=== PATIENT | female | born 1950 | race Caucasian/White ===

== ENCOUNTER 2017-03-23 12:01 | Inpatient (IN) | payer MEDICARE, OTHER ==
[~2017-03-23] VITALS: Ht 160 cm; Wt 122.0 kg
[~2017-03-23 12:01] MED LIST: IOHEXOL 300 MG/ML 50 ML BTL (for RAD DIAG) ONE; ONDANSETRON HCL 4 MG/2 ML VIAL IV PUSH ONE; PROPOFOL 200 MG/20 ML AMP IV ONE
[2017-03-23 12:03] VITALS: BP 143/85; PULSE 115; RESP 18; TEMP 98.7; O2SAT 95
--- NOTE | 2017-03-23 12:10 | PD ---
Physical Exam Date Seen by Provider: Mar 23, 2017 Time Seen by Provider: 12:09 Narrative 66 yo female that present to the ED for lower mid back pain. Doesnt radiate. Unsure if is kidney stone, but has had them before. Some abdominal pain too. No urinary or BM issues. Going on since yesterday. Some nausea but no vomit. Chills. pain is 8/10. Vitals are stable in triage. Awaiting bed placement. Data Data Last Documented VS Vital Signs Date Time Temp Pulse Resp B/P Pulse Ox O2 Delivery O2 Flow Rate FiO2 03/23/17 12:03 98.7 115 18 143/85 95 MDM Medical Record Reviewed: Yes Supervised Visit with EMILIANO: No Bird Tyler Mar 23, 2017 12:10
[2017-03-23] MEDS ORDERED: LEVO75TA3 PO (12:28)
[2017-03-23] MEDS ORDERED: ACTO30TA10 PO ×2 (12:28→13:27)
[2017-03-23] MEDS ORDERED: WELLTAB39 PO (12:28)
[2017-03-23] MEDS ORDERED: TOPA100T11 PO (12:28)
[2017-03-23] MEDS ORDERED: VIIB40TA PO (12:28)
[2017-03-23] MEDS ORDERED: SODIUM CHLOR 0.9% 1000 ML INJ 1,000 ML IV SCH (12:32)
[2017-03-23] MEDS ORDERED: HYDROmorphone HCL PF 1 MG/ML VIAL IVS ONE (12:45)
[2017-03-23] MEDS ORDERED: SODIUM CHLORIDE 0.9% FLUSH 10 ML FLUSH IV FLUSH PRN ×2 (12:45→14:45)
[2017-03-23] MEDS ORDERED: ONDANSETRON HCL 4 MG/2 ML VIAL IVP ONE (12:45)
--- NOTE | 2017-03-23 12:56 | PD ---
HPI Chief Complaint: GI Complaint Time Seen by Provider: 12:18 Travel History International Travel<30 days: No Contact w/Intl Traveler<30days: No Traveled to known affect area: No History of Present Illness HPI 66-year-old female arrives with complaint of left flank pain for about 20 hours or so. It started yesterday while she was in a pool. The onset was sudden. She began shivering afterwards and laid under blankets for several hours. She felt gas pains and believed she may have been constipated. Tums did not help. She applied a patch to the L flank hoping for pain relief which helped marginally. A warm compress over the suprapubic abdomen was minimally helpful. No fever, n/v. Urination has been normal with no hematuria observed. Pt has hx renal stones however believes pain is different. PFSH Past Medical History Arthritis: Yes Depression: Yes Diabetes: Yes Patient Takes Glucophage: No Diminished Hearing: No Endocrine: Yes (hypothyroidism) Influenza Vaccination: Yes ?: Not Past Surgical History Gynecologic Surgery: Yes Hysterectomy: Yes Social History Alcohol Use: Yes (VERY RARELY) Tobacco Use: No Substance Use: No Allergies-Medications (Allergen,Severity, Reaction): Coded Allergies: No Known Allergies (Unverified , 03/23/17) Reported Meds & Prescriptions Reported Meds & Active Scripts Active Reported Vitamin D-1000 (Cholecalciferol) 1,000 Unit Tab 50,000 Units PO WEEKLY Cyanocobalamin Inj (Cyanocobalamin) 1,000 Mcg/Ml Inj 1,000 Mcg IM Q30D Temazepam 30 Mg Cap 30 Mg PO HS PRN Atorvastatin (Atorvastatin Calcium) 10 Mg Tab 10 Mg PO HS Fluticasone Nasal [place] 50 Mcg/Act Naspr 50 Mcg EACH NARE BID 50 mcg/spray Actos (Pioglitazone HCl) 30 Mg Tab 30 Mg PO DAILY Actos (Pioglitazone HCl) 30 Mg Tab 30 Mg PO DAILY Topamax (Topiramate) 100 Mg Tab 100 Mg PO BID Viibryd (Vilazodone) 40 Mg Tab 40 Mg PO DAILY Wellbutrin Xl 24 HR (Bupropion HCl) 300 Mg Tab 300 Mg PO DAILY Levothyroxine (Levothyroxine Sodium) 75 Mcg Tab 75 Mcg PO DAILY Review of Systems Except as stated in HPI: all other systems reviewed are Neg Physical Exam Narrative GENERAL: 66 yo F, WNWD, NAD SKIN: Warm and dry. HEAD: Atraumatic. Normocephalic. EYES: Pupils equal and round. No scleral icterus. No injection or drainage. ENT: No nasal bleeding or discharge. Mucous membranes pink and moist. NECK: Trachea midline. No JVD. CARDIOVASCULAR: Regular rate and rhythm. RESPIRATORY: No accessory muscle use. Clear to auscultation. Breath sounds equal bilaterally. GASTROINTESTINAL: Soft. No significant TTP either flank. MUSCULOSKELETAL: Extremities without clubbing, cyanosis, or edema. No obvious deformities. NEUROLOGICAL: Awake and alert. No obvious cranial nerve deficits. Motor grossly within normal limits. Five out of 5 muscle strength in the arms and legs. Normal speech. PSYCHIATRIC: Appropriate mood and affect; insight and judgment normal. Data Data Last Documented VS Vital Signs Date Time Temp Pulse Resp B/P Pulse Ox O2 Delivery O2 Flow Rate FiO2 03/23/17 12:58 99.2 91 20 133/61 94 Room Air VS removed Orders Complete Blood Count With Diff (03/23/17 12:32) Comprehensive Metabolic Panel (03/23/17 12:32) Lipase (03/23/17 12:32) Lactic Acid (03/23/17 12:32) Ct Abd/Pel W/O Iv Contrast (03/23/17 12:32) Iv Access Insert/Monitor (03/23/17 12:32) Ecg Monitoring (03/23/17 12:32) Oximetry (03/23/17 12:32) Ondansetron Inj (Zofran Inj) (03/23/17 12:45) Sodium Chlor 0.9% 1000 Ml Inj (Ns 1000 M (03/23/17 12:32) Sodium Chloride 0.9% Flush (Ns Flush) (03/23/17 12:45) Hydromorphone Pf Inj (Dilaudid Pf Inj) (03/23/17 12:45) Urinalysis - C+S If Indicated (03/23/17 13:23) Gentamicin Inj (Gentamicin Inj) (03/23/17 13:49) Vancomycin Inj (Vancomycin Inj) (03/23/17 13:49) Diet Npo (03/23/17 Lunch) Vancomycin Inj (Vancomycin Inj) (03/23/17 15:00) Piperacil-Tazo 2.25 Gm Premix (Zosyn 2.2 (03/23/17 15:00) Admit Order (Ed Use Only) (03/23/17 14:35) Labs Laboratory Tests Test 03/23/17 12:30 White Blood Count 15.6 TH/MM3 Red Blood Count 3.88 MIL/MM3 Hemoglobin 11.9 GM/DL Hematocrit 35.7 % Mean Corpuscular Volume 92.1 FL Mean Corpuscular Hemoglobin 30.8 PG Mean Corpuscular Hemoglobin 33.4 % Concent Red Cell Distribution Width 13.8 % Platelet Count 162 TH/MM3 Mean Platelet Volume 9.4 FL Neutrophils (%) (Auto) 93.0 % Lymphocytes (%) (Auto) 2.8 % Monocytes (%) (Auto) 4.0 % Eosinophils (%) (Auto) 0.0 % Basophils (%) (Auto) 0.2 % Neutrophils # (Auto) 14.5 TH/MM3 Lymphocytes # (Auto) 0.4 TH/MM3 Monocytes # (Auto) 0.6 TH/MM3 Eosinophils # (Auto) 0.0 TH/MM3 Basophils # (Auto) 0.0 TH/MM3 CBC Comment DIFF FINAL Differential Comment Sodium Level 139 MEQ/L Potassium Level 3.6 MEQ/L Chloride Level 109 MEQ/L Carbon Dioxide Level 21.6 MEQ/L Anion Gap 8 MEQ/L Blood Urea Nitrogen 24 MG/DL Creatinine 1.47 MG/DL Estimat Glomerular Filtration 36 ML/MIN Rate Random Glucose 105 MG/DL Lactic Acid Level 1.1 mmol/L Calcium Level 9.2 MG/DL Total Bilirubin 0.7 MG/DL Aspartate Amino Transf 17 U/L (AST/SGOT) Alanine Aminotransferase 19 U/L (ALT/SGPT) Alkaline Phosphatase 113 U/L Total Protein 7.2 GM/DL Albumin 3.5 GM/DL Lipase 43 U/L [facility] Medical Decision Making Medical Screen Exam Complete: Yes Emergency Medical Condition: Yes Medical Record Reviewed: Yes Differential Diagnosis Gastritis, pancreatitis, appendicitis, acute cholecystitis, ascending cholangitis, AAA, perforated viscous, mesenteric ischemia, hepatitis, cystitis, hydronephrosis/hydroureter/nephroureter calculus, mesenteric adenitis, biliary colic Narrative Course CBC & BMP Diagram 03/23/17 12:30 Neutrophils 93% LFTs normal LA 1.1 Lipase 43 Last 24 hours Impressions Abdomen/Pelvis CT 03/23/17 1232 Signed Impressions: Service Date/Time: Thursday, March 23, 2017 13:08 - CONCLUSION: 1. Acute obstructive uropathy of the left proximal ureter secondary to a 15 x 6 mm calcified calculus resulting in moderate pelvicaliectasis on the left. There is also air throughout the pelvicalyceal system suggesting gas-forming organism unless instrumentation has been attempted. Clinical correlation is recommended. Perinephric streakiness is noted on the left. 2. Uncomplicated colonic diverticulosis. 3. Hepatomegaly. 4. Scattered atelectasis within the visualized lung bases. 5. Cardiomegaly and tiny pericardial effusion. 6. Degenerative changes and scoliosis of the thoracolumbar spine are noted. Jerrod Shirley MD Broad-spectrum antibiotics started, gentamicin and vancomycin and Zosyn. Case discussed with Dr. Palma who will take the patient to the OR for stent placement. Case discussed with Dr. Musa for the hospitalist service. Patient has remained comfortable after receiving 0.5 mg hydromorphone 2 hours prior to time of admission. Patient is agreeable with plan that includes admission with plan for operative intervention. Diagnosis Primary Impression: Ureteric calculus Additional Impression: Urinary tract obstruction due to kidney stone Admitting Information Admitting Physician Requests: Admit Jose Parada MD Mar 23, 2017 12:56
[2017-03-23 12:58] VITALS: BP 133/61; PULSE 91; RESP 20; TEMP 99.2; O2SAT 94
[2017-03-23 13:10] LABS: AUTOMATED NEUTROPHIL # 14.5 TH/MM3 (1.8-7.7); BASOPHIL % 0.2 % (0.0-2.0); HEMATOCRIT 35.7 % (35.0-46.0); HEMO FLAGS DIFF FINAL; LYMPH % 2.8 % (9.0-44.0); LYMPHOCYTE # 0.4 TH/MM3 (1.0-4.8); MEAN CELL VOLUME 92.1 FL (80.0-100.0); MEAN CORPUSCULAR HEMOGLOBIN 30.8 PG (27.0-34.0); MEAN CORPUSCULAR HGB CONC 33.4 % (32.0-36.0); PLATELET COUNT 162 TH/MM3 (150-450); RED BLOOD COUNT 3.88 MIL/MM3 (4.00-5.30); RED CELL DISTRIBUTION WIDTH 13.8 % (11.6-17.2); WHITE BLOOD COUNT 15.6 TH/MM3 (4.0-11.0)
[2017-03-23] MEDS ORDERED: CYAN1000P IM (13:27)
[2017-03-23] MEDS ORDERED: FLUT50SP EACH NARE (13:27)
[2017-03-23] MEDS ORDERED: TEMA30CA PO (13:27)
[2017-03-23] MEDS ORDERED: ATOR10TA15 PO (13:27)
[2017-03-23] MEDS ORDERED: VITA1000 PO (13:27)
[2017-03-23 13:35] LABS: ANION GAP 8 MEQ/L (5-15); AST (GOT) 17 U/L (15-37); BICARBONATE 21.6 MEQ/L (21.0-32.0); BLOOD UREA NITROGEN 24 MG/DL (7-18); CHLORIDE 109 MEQ/L (98-107); GLOMERULAR FILTRATION RATE 36 ML/MIN (>89); POTASSIUM 3.6 MEQ/L (3.5-5.1); SODIUM (NA) 139 MEQ/L (136-145)
[2017-03-23 13:36] LABS: ALT (GPT) 19 U/L (10-53)
[2017-03-23 13:38] LABS: ALKALINE PHOSPHATASE 113 U/L (45-117); TOTAL BILIRUBIN ADULT 0.7 MG/DL (0.2-1.0)
--- NOTE | 2017-03-23 13:40 | RADRPT ---
EXAM DATE/TIME: 03/23/2017 13:08 [place] COMPARISON: No previous studies available for comparison. INDICATIONS : Left flank pain, nausea. ORAL CONTRAST: No oral contrast ingested. RADIATION DOSE: 18.82 CTDIvol (mGy) MEDICAL HISTORY : Diabetes mellitus type 2. Hypothyroidism. Renal calculi. SURGICAL HISTORY : Hysterectomy. ENCOUNTER: Initial ACUITY: 1 day PAIN SCALE: 8/10 LOCATION: Left flank TECHNIQUE: Volumetric scanning of the abdomen and pelvis was performed. Using automated exposure control and ad justment of the mA and/or kV according to patient size, radiation dose was kept as low as reasonably achievable to obtain optimal diagnostic quality images. DICOM format image data is available electro nically for review and comparison. FINDINGS: There is evidence of a large calcified obstructing left proximal ureteral calculus measuring 15 x 6 m m. Moderate pelvicaliectasis is noted. There is also extensive air within the collecting system sug gesting gas-forming organism. Perinephric streakiness is noted. Uncomplicated colonic diverticulosis is noted. There is no acute diverticulitis. Evaluation of the solid organs of the abdomen is limited by the lack of intravenous contrast. There is mild hepatomegaly. The gallbladder is unremarkable. The heart is enlarged. Small pericardial ef fusion is noted. Degenerative changes and scoliosis of the thoracolumbar spine are noted. Scattered atelectasis is noted in the lung bases bilaterally. CONCLUSION: 1. Acute obstructive uropathy of the left proximal ureter secondary to a 15 x 6 mm calcified calculu s resulting in moderate pelvicaliectasis on the left. There is also air throughout the pelvicalyceal system suggesting gas-forming organism unless instrumentation has been attempted. Clinical correlat ion is recommended. Perinephric streakiness is noted on the left. 2. Uncomplicated colonic diverticulosis. 3. Hepatomegaly. 4. Scattered atelectasis within the visualized lung bases. 5. Cardiomegaly and tiny pericardial effusion. 6. Degenerative changes and scoliosis of the thoracolumbar spine are noted. Jerrod Shirley MD on March 23, 2017 at 13:18 Board Certified Radiologist. This report was verified electronically.
[2017-03-23] MEDS ORDERED: GENTAMICIN INJ 100 MG in SODIUM CHLORIDE 0.9% INJ 100 ML IV STA (13:49)
[2017-03-23] MEDS ORDERED: VANCOMYCIN INJ 1,000 MG in SODIUM CHLOR 0.9% 250 ML INJ 250 ML IV STA (13:49)
[2017-03-23] MEDS ORDERED: NALOXONE HCL 0.4 MG/ML AMP IV PRN (14:45)
[2017-03-23] MEDS ORDERED: BISACODYL 10 MG SUPP RECTAL PRN (14:45)
[2017-03-23] MEDS ORDERED: SENNOSIDES 8.6 MG TAB PO PRN (14:45)
[2017-03-23] MEDS ORDERED: MAGNESIUM HYDROXIDE SUSP 30 ML CUP PO PRN (14:45)
[2017-03-23] MEDS ORDERED: LACTULOSE SYRUP 20 GM/30 ML CUP PO PRN (14:45)
--- NOTE | 2017-03-23 14:56 | PD.CONS ---
HPI Service Urology Consult Requested By Reason for Consult Obstructing left ureteral calculus Primary Care Physician Ricky Perez M.D. Diagnosis: History of Present Illness 66-year-old female with history nephrolithiasis who presented to the emergency room with complaints of left flank pain that began yesterday. Patient reports that during the night she was shivering and required multiple blankets. Upon arrival to the emergency room, a CT scan of the abdomen and pelvis was performed that demonstrated a 1.5 cm obstructing left proximal ureteral calculus with hydronephrosis. There was also air noted to be within the collecting system as well as perinephric stranding. An emergent urology consult was placed regarding further management. Upon further questioning the patient reports that she had one stone episode several years ago whereby she passed a small stones spontaneously. She denies a history of any other significant past urologic history. Review of Systems Constitutional: COMPLAINS OF: Chills, DENIES: Fever Cardiovascular: DENIES: Chest pain Gastrointestinal: COMPLAINS OF: Abdominal pain (left side) Genitourinary: DENIES: Hematuria Musculoskeletal: COMPLAINS OF: Back pain (left flank) Except as stated in HPI: all other systems reviewed are Neg Past Family Social History Past Medical History Diabetes mellitus Nephrolithiasis Arthritis Depression Hypothyroidism Past Surgical History Status post hysterectomy Reported Medications Refer to EMR Allergies: Coded Allergies: No Known Allergies (Unverified , 03/23/17) Active Ordered Medications Refer to EMR Family History Reviewed and noncontributory Social History Denies tobacco or history intravenous drug abuse Occasional alcohol use Physical Exam Vital Signs Date Time Temp Pulse Resp B/P Pulse Ox O2 Delivery O2 Flow Rate FiO2 03/23/17 12:58 99.2 91 20 133/61 94 Room Air 03/23/17 12:03 98.7 115 18 143/85 95 Physical Exam GENERAL: This is a well-nourished, well-developed patient, in no apparent distress. SKIN: No rashes, ecchymoses or lesions. Cool and dry. HEAD: Atraumatic. Normocephalic. No temporal or scalp tenderness. EYES: Pupils equal round and reactive. Extraocular motions intact. No scleral icterus. No injection or drainage. ENT: Nose without bleeding, purulent drainage or septal hematoma. Throat without erythema, tonsillar hypertrophy or exudate. Uvula midline. Airway patent. NECK: Trachea midline. No JVD or lymphadenopathy. Supple, nontender, no meningeal signs. CARDIOVASCULAR: Regular rate and rhythm without murmurs, gallops, or rubs. RESPIRATORY: Clear to auscultation. Breath sounds equal bilaterally. No wheezes , rales, or rhonchi. GASTROINTESTINAL: Abdomen soft, non-tender, nondistended. No hepato-splenomegaly , or palpable masses. No guarding. GENITOURINARY: No CVA tenderness MUSCULOSKELETAL: Extremities without clubbing, cyanosis, or edema. No joint tenderness, effusion, or edema noted. No calf tenderness. Negative Homans sign bilaterally. NEUROLOGICAL: Awake and alert. Cranial nerves II through XII intact. Motor and sensory grossly within normal limits. Five out of 5 muscle strength in all muscle groups. Normal speech. Lab results reviewed: Yes Laboratory Tests Test 03/23/17 12:30 White Blood Count 15.6 Red Blood Count 3.88 Hemoglobin 11.9 Hematocrit 35.7 Mean Corpuscular Volume 92.1 Mean Corpuscular Hemoglobin 30.8 Mean Corpuscular Hemoglobin 33.4 Concent Red Cell Distribution Width 13.8 Platelet Count 162 Mean Platelet Volume 9.4 Neutrophils (%) (Auto) 93.0 Lymphocytes (%) (Auto) 2.8 Monocytes (%) (Auto) 4.0 Eosinophils (%) (Auto) 0.0 Basophils (%) (Auto) 0.2 Neutrophils # (Auto) 14.5 Lymphocytes # (Auto) 0.4 Monocytes # (Auto) 0.6 Eosinophils # (Auto) 0.0 Basophils # (Auto) 0.0 CBC Comment DIFF FINAL Differential Comment Sodium Level 139 Potassium Level 3.6 Chloride Level 109 Carbon Dioxide Level 21.6 Anion Gap 8 Blood Urea Nitrogen 24 Creatinine 1.47 Estimat Glomerular Filtration 36 Rate Random Glucose 105 Lactic Acid Level 1.1 Calcium Level 9.2 Total Bilirubin 0.7 Aspartate Amino Transf 17 (AST/SGOT) Alanine Aminotransferase 19 (ALT/SGPT) Alkaline Phosphatase 113 Total Protein 7.2 Albumin 3.5 Lipase 43 Result Diagram: 03/23/17 1230 03/23/17 1230 Personally reviewed images: Yes Imaging Last Impressions Abdomen/Pelvis CT 03/23/17 1232 Signed Impressions: Service Date/Time: Thursday, March 23, 2017 13:08 - CONCLUSION: 1. Acute obstructive uropathy of the left proximal ureter secondary to a 15 x 6 mm calcified calculus resulting in moderate pelvicaliectasis on the left. There is also air throughout the pelvicalyceal system suggesting gas-forming organism unless instrumentation has been attempted. Clinical correlation is recommended. Perinephric streakiness is noted on the left. 2. Uncomplicated colonic diverticulosis. 3. Hepatomegaly. 4. Scattered atelectasis within the visualized lung bases. 5. Cardiomegaly and tiny pericardial effusion. 6. Degenerative changes and scoliosis of the thoracolumbar spine are noted. Jerrod Shirley MD Assessment and Plan Assessment and Plan Urologic impression: #1 left sided emphysematous pyelonephritis #2 obstructing left proximal ureteral calculus Plan: #1 keep patient nothing by mouth #2 agree with intravenous antibiotic therapy #3 will bring the patient to the operating room suite today for cystoscopy, left retrograde pyelogram and left ureteral stent placement Keanu Castillo MD Mar 23, 2017 14:56
[2017-03-23] MEDS ORDERED: PIPERACIL-TAZO 2.25 GM PREMIX 50 ML IV ONE (15:00)
[2017-03-23] MEDS ORDERED: VANCOMYCIN INJ 1,750 MG in SODIUM CHLORID 0.9% 500 ML INJ 500 ML IV ONE (15:00)
[2017-03-23] MEDS: SODIUM CHLOR 0.9% 1000 ML INJ 1,000 ML IV SCH ×2 (15:05→20:12)
[2017-03-23] MEDS ORDERED: GLUCAGON 1 MG/ML VIAL OTHER PRN (15:15)
[2017-03-23] MEDS ORDERED: DEXTROSE 50% IN WATER 50 ML VIAL(D50) IV PRN (15:15)
--- NOTE | 2017-03-23 15:29 | HHI.HP ---
[facility]ician Ricky Perez M.D. Admission Diagnosis L Ureter Stone w Obstruction Diagnoses: Chief Complaint: Abdominal/flank pain Travel History International Travel<30 Days: No Contact w/Intl Traveler <30 Da: No Traveled to Known Affected Are: No History of Present Illness Written by Gus Chaudhary, acting as scribe for Dr. Musa on 03/23/17 at 15:29. 66-year-old female with a past medical history of depression, DM, HLD, OA, hypothyroidism, and history of kidney stones in the past who presented for left flank pain. The patient states that yesterday afternoon she was swelling and developed dull back pain. The pain has been constant since that time. She locates the pain in her left back and it radiates to her lower abdomen. She did have chills last night. She's been reporting decreased appetite for the past day. She's been generally uncomfortable secondary to the pain overnight. She denies any nausea, vomiting, chest pain, shortness breath, dysuria, headache , constipation, cough, cold symptoms. She did have a history of a small kidney stone back in 2011 which he passed spontaneously. She did have a recent intentional 50 pound weight loss. She was seen by urology who is planning on operative intervention today. Review of Systems Except as stated in HPI: all other systems reviewed are Neg Past Family Social History Past Medical History Depression Hyperlipidemia Diabetes mellitus Hypothyroidism Osteoarthritis History of kidney stones Past Surgical History Hysterectomy Lumpectomy Reported Medications Vitamin D-1000 (Cholecalciferol) 1,000 Unit Tab 50,000 Units PO WEEKLY Cyanocobalamin Inj (Cyanocobalamin) 1,000 Mcg/Ml Inj 1,000 Mcg IM Q30D Temazepam 30 Mg Cap 30 Mg PO HS PRN Atorvastatin (Atorvastatin Calcium) 10 Mg Tab 10 Mg PO HS Fluticasone Nasal [place] 50 Mcg/Act Naspr 50 Mcg EACH NARE BID 50 mcg/spray Actos (Pioglitazone HCl) 30 Mg Tab 30 Mg PO DAILY Actos (Pioglitazone HCl) 30 Mg Tab 30 Mg PO DAILY Topamax (Topiramate) 100 Mg Tab 100 Mg PO BID Viibryd (Vilazodone) 40 Mg Tab 40 Mg PO DAILY Wellbutrin Xl 24 HR (Bupropion HCl) 300 Mg Tab 300 Mg PO DAILY Levothyroxine (Levothyroxine Sodium) 75 Mcg Tab 75 Mcg PO DAILY Allergies: Coded Allergies: No Known Allergies (Unverified , 03/23/17) Active Ordered Medications Current Medications Medications (Trade) Dose Ordered Sig/Judith Route Start Time Stop Time Status Last Admin Sodium Chloride 2 ml 2 ml UNSCH PRN IV FLUSH 03/23/17 12:45 Vancomycin HCl 1750 mg/Sodium Chloride 517.5 ml @ 258.75 mls/ hr ONCE ONCE IV 03/23/17 15:00 03/23/17 16:59 (NS 1000 ml Inj) 1,000 ml @ 100 mls/hr Q10H IV 03/23/17 14:37 03/23/17 15:05 (NS Flush) 2 ml UNSCH PRN IV FLUSH 03/23/17 14:45 (NS Flush) 2 ml BID IV FLUSH 03/23/17 21:00 (Zofran Inj) 4 mg Q6H PRN IVP 03/23/17 14:45 (Narcan Inj) 0.4 mg UNSCH PRN IV 03/23/17 14:45 (Olivia-Colace) 1 tab BID PO 03/23/17 21:00 (Milk Of Magnesia Liq) 30 ml Q12H PRN PO 03/23/17 14:45 (Senokot) 17.2 mg Q12H PRN PO 03/23/17 14:45 (Dulcolax Supp) 10 mg DAILY PRN RECTAL 03/23/17 14:45 Lactulose 30 ml 30 ml DAILY PRN PO 03/23/17 14:45 (Zosyn 3.375 Gm Premix) 50 ml @ 100 mls/hr Q8H IV 03/23/17 23:00 (D50w (Vial) Inj) 50 ml UNSCH PRN IV 03/23/17 15:15 (Glucagon Inj) 1 mg UNSCH PRN OTHER 03/23/17 15:15 Family History Mother of lung cancer at age 62 Father of stomach cancer age 82 Social History Rare alcohol use Denies any tobacco or drug use Physical Exam Vital Signs Vital Signs Date Time Temp Pulse Resp B/P Pulse Ox O2 Delivery O2 Flow Rate FiO2 03/23/17 12:58 99.2 91 20 133/61 94 Room Air 03/23/17 12:03 98.7 115 18 143/85 95 Physical Exam GENERAL: Well-developed well-nourished morbidly obese. In no acute distress. SKIN: Warm and dry. No lesions noted. HEENT: Normocephalic. Pupils equal and round. Mucous membranes pink and moist. CARDIOVASCULAR: Regular rate and rhythm. No murmur appreciated. RESPIRATORY: No accessory muscle use. Clear to auscultation. Breath sounds equal bilaterally. GASTROINTESTINAL: Abdomen soft, mild lower abdominal TTP, nondistended. Bowel sounds x4. No CVA tenderness. MUSCULOSKELETAL: No obvious deformities. No clubbing or cyanosis. No edema. NEUROLOGICAL: Awake and alert. No focal neurological deficits. Moves upper and lower extremities spontaneously. Normal speech. PSYCHIATRIC: Doesn't mood and affect; insight and judgment normal. Laboratory Laboratory Tests Test 03/23/17 12:30 White Blood Count 15.6 Red Blood Count 3.88 Hemoglobin 11.9 Hematocrit 35.7 Mean Corpuscular Volume 92.1 Mean Corpuscular Hemoglobin 30.8 Mean Corpuscular Hemoglobin 33.4 Concent Red Cell Distribution Width 13.8 Platelet Count 162 Mean Platelet Volume 9.4 Neutrophils (%) (Auto) 93.0 Lymphocytes (%) (Auto) 2.8 Monocytes (%) (Auto) 4.0 Eosinophils (%) (Auto) 0.0 Basophils (%) (Auto) 0.2 Neutrophils # (Auto) 14.5 Lymphocytes # (Auto) 0.4 Monocytes # (Auto) 0.6 Eosinophils # (Auto) 0.0 Basophils # (Auto) 0.0 CBC Comment DIFF FINAL Differential Comment Sodium Level 139 Potassium Level 3.6 Chloride Level 109 Carbon Dioxide Level 21.6 Anion Gap 8 Blood Urea Nitrogen 24 Creatinine 1.47 Estimat Glomerular Filtration 36 Rate Random Glucose 105 Lactic Acid Level 1.1 Calcium Level 9.2 Total Bilirubin 0.7 Aspartate Amino Transf 17 (AST/SGOT) Alanine Aminotransferase 19 (ALT/SGPT) Alkaline Phosphatase 113 Total Protein 7.2 Albumin 3.5 Lipase 43 Result Diagram: 03/23/17 1230 03/23/17 1230 Imaging Last Impressions Abdomen/Pelvis CT 03/23/17 1232 Signed Impressions: Service Date/Time: Thursday, March 23, 2017 13:08 - CONCLUSION: 1. Acute obstructive uropathy of the left proximal ureter secondary to a 15 x 6 mm calcified calculus resulting in moderate pelvicaliectasis on the left. There is also air throughout the pelvicalyceal system suggesting gas-forming organism unless instrumentation has been attempted. Clinical correlation is recommended. Perinephric streakiness is noted on the left. 2. Uncomplicated colonic diverticulosis. 3. Hepatomegaly. 4. Scattered atelectasis within the visualized lung bases. 5. Cardiomegaly and tiny pericardial effusion. 6. Degenerative changes and scoliosis of the thoracolumbar spine are noted. Jerrod Shirley MD Assessment and Plan Assessment and Plan 66-year-old female with a past medical history of depression, DM, HLD, OA, hypothyroidism, and history of kidney stones in the past who presented for left flank pain //Pyelonephritis //Sepsis //Acute obstructive uropathy //Ureterolithiasis Reviewed: Abdominal CT shows acute obstructive uropathy of the left proximal ureter secondary to a 15 x 6 mm calculus; there is present throughout the pelvicalyceal system suggesting gas-forming organism. Tachycardia. WBC 15.6. Lactic acid within normal limits. Tmax 99.2. -Empiric antibiotic coverage with IV vancomycin and Zosyn -Urology is been consulted, planning on cystoscopy with possible stent placement. Keep nothing by mouth for now. -IVF -Pain control with [place] and IV morphine as needed //DEVON Creatinine 1.47, no previous labs for comparison. Likely secondary to the above. -IVF and follow-up BMP //Diabetes mellitus. Chronic, stable. -Hold home oral hypoglycemics. Monitor Accu-Cheks. Cover with SSI. DVT prophylaxis: SCD Code Status Full code Discussed Condition With Patient with family at bedside, ED staff Attending Statement This note was transcribed by scribe [ Gus Chaudhary]. I, Dr. Chris Musa personally performed the history, physical exam, and medical decision making; and confirmed the accuracy of the information in the transcribed note. Authenticated by Dr. Chris Musa on 03/25/17 at 10:45. Gus Chaudhary Mar 23, 2017 15:29 Chris Musa MD Mar 25, 2017 10:45
[2017-03-23 15:45] VITALS: BP 131/60; PULSE 104; RESP 18; TEMP 98.5; O2SAT 94
[2017-03-23] MEDS: INSULIN ASPART SUPPLEMENTAL SCALE SQ SCH ×2 (16:00→20:12)
[2017-03-23] MEDS ORDERED: TEMAZEPAM 15 MG CAP PO PRN (16:00)
[2017-03-23 16:35] LABS: BACTERIA, URINE OCC /hpf; BLOOD, URINE SMALL (NEG); COMMENT (UR) CULTURE INDICATED; CULTURE IF INDICATED CULTURE INDICATED; GLUCOSE,URINE NEG (NEG); KETONE, URINE NEG (NEG); MUCUS URINE FEW /lpf (OCC); NITRITE,URINE NEG (NEG); PH, URINE 5.5 (5.0-8.5); SQUAMOUS EPITHELIAL CELL URINE 4 /hpf (0-5); URINE COLOR YELLOW (YELLW/STRAW)
[2017-03-23] MEDS ORDERED: *MEPERIDINE 25 MG INJ VIAL PERIprocedural Use ONLY ONE (17:36)
--- NOTE | 2017-03-23 17:38 | PD.OP ---
Operative Report Date of Surgery: Mar 23, 2017 Preoperative Diagnosis: (1) Ureteric calculus (2) Urinary tract obstruction due to kidney stone Postoperative Diagnosis: (1) Ureteric calculus (2) Urinary tract obstruction due to kidney stone Procedure: Cystoscopy, left retrograde pyelogram, left ureteral stone manipulation and insertion left ureteral stent Anesthesia: General Surgeon: Keanu Castillo Incident Handler(s): None Operation and Findings: Indication for procedure: Case of a pleasant 66 rolled female with an obstructing left proximal ureteral calculus with left hydronephrosis and air within the left renal collecting system. Patient presents now for emergent left ureteral stent placement. Operative procedure in detail: Patient was brought to the operating room suite and placed supine on the cystoscopy table. She was then placed under general endotracheal anesthesia. She was then repositioned in the dorsal lithotomy position and prepped and draped in normal sterile fashion. After appropriate timeout was undertaken I proceeded with cystoscopic evaluation utilizing the rigid cystoscope with a 22 [place]raini sheath and the 30 lens. Both right and left ureteral orifices were correct anatomic position. There was clear reflux noted on the right and no reflux noted on the left side. There were no bladder mucosal lesions calculi or diverticula formation noted. I next proceeded to advance a 0.35 nitinol wire up the left ureter around the stone into the left renal pelvis. A 6 [place]i open-ended ureteral catheter was advanced over this wire and the stone gently manipulated in a cephalad direction to free it from its impaction site. The nitinol wire was withdrawn and a sample of urine was obtained from the open-ended catheter which was purulent in nature. Next, a left retrograde pyelogram was performed to outline the collecting system. A 0.35 Ned wire was then utilized and advanced through the open-ended catheter into the left renal pelvis. The open-ended catheter was then exchanged for a 6 [place]i 24 cm double-J stent. The stent was placed utilizing both cystoscopic and fluoroscopic guidance. Once the stent was in proper position the trailing string was removed. A 16 [place]raini 10 cc Ham catheter was next placed and connected to gravity drainage. The patient tolerated the procedures without complications and was transferred to the PACU in satisfactory condition. Keanu Castillo MD Mar 23, 2017 17:38
[2017-03-23] MEDS ORDERED: MORPHINE SULFATE 4 MG/ML INJ ONE (17:39)
[2017-03-23] MEDS ORDERED: *morphine SULFATE 8 MG/ML PERIprocedure ONLY ONE (17:58)
[2017-03-23] MEDS ORDERED: DO NOT ADM ANY ANTICOAGULANT DRUGS PRN (18:00)
[2017-03-23 19:52] VITALS: PULSE 122
[2017-03-23 20:00] VITALS: BP 145/63; PULSE 119; RESP 20; TEMP 100.1; O2SAT 98
[2017-03-23] MEDS: ATORVASTATIN 10 MG TAB PO SCH (20:13)
[2017-03-23] MEDS: ACETAMINOPHEN/HYDROcodone 325 MG/5 MG TAB PO PRN (20:13)
[2017-03-23] MEDS: DOCUSATE SODIUM 50 MG/SENNA 8.6 MG TAB PO SCH (20:13)
[2017-03-23] MEDS: ONDANSETRON HCL 4 MG/2 ML VIAL IVP PRN (20:14)
[2017-03-23] MEDS: buPROPion HCL 75 MG TAB PO SCH (22:28)
[2017-03-23] MEDS: SODIUM CHLORIDE 0.9% FLUSH 10 ML FLUSH IV FLUSH SCH (22:28)
[2017-03-23] MEDS: TOPIRAMATE 100 MG TAB PO SCH (22:28)
[2017-03-23] MEDS: MORPHINE SULFATE 4 MG/ML INJ IV PUSH PRN (22:29)
[2017-03-23] MEDS: PIPERACIL-TAZO 3.375 GM PREMIX 50 ML IV SCH (22:29)
[2017-03-23] MEDS ORDERED: SODIUM CHLORID 0.9% 500 ML INJ 500 ML IV ONE (23:30)
[2017-03-23] MEDS ORDERED: ACETAMINOPHEN 325 MG TAB PO PRN (23:30)
[2017-03-24] VITALS: BP 99/49; PULSE 129; RESP 20; TEMP 100.2; O2SAT 94
[2017-03-24 04:00] VITALS: BP 116/56; PULSE 113; RESP 20; TEMP 100.5; O2SAT 96
[2017-03-24] MEDS: LEVOTHYROXINE SODIUM 75 MCG TAB PO SCH (04:28)
[2017-03-24] MEDS: INSULIN ASPART SUPPLEMENTAL SCALE SQ SCH ×4 (04:28→21:00)
[2017-03-24] MEDS: PIPERACIL-TAZO 3.375 GM PREMIX 50 ML IV SCH ×3 (04:29→22:31)
[2017-03-24] MEDS: ONDANSETRON HCL 4 MG/2 ML VIAL IVP PRN ×2 (04:32→19:45)
[2017-03-24] MEDS: MORPHINE SULFATE 4 MG/ML INJ IV PUSH PRN ×2 (04:32→19:45)
[2017-03-24 04:56] LABS: AUTOMATED NEUTROPHIL # 14.4 TH/MM3 (1.8-7.7); BASOPHIL % 0.1 % (0.0-2.0); EOSINOPHIL % 0.2 % (0.0-4.0); HEMATOCRIT 28.5 % (35.0-46.0); LYMPH % 2.4 % (9.0-44.0); LYMPHOCYTE # 0.4 TH/MM3 (1.0-4.8); MEAN CELL VOLUME 92.6 FL (80.0-100.0); MEAN CORPUSCULAR HEMOGLOBIN 31.2 PG (27.0-34.0); MEAN CORPUSCULAR HGB CONC 33.7 % (32.0-36.0); MONO % 4.3 % (0.0-8.0); PLATELET COUNT 109 TH/MM3 (150-450); RED BLOOD COUNT 3.08 MIL/MM3 (4.00-5.30); RED CELL DISTRIBUTION WIDTH 14.4 % (11.6-17.2); WHITE BLOOD COUNT 15.5 TH/MM3 (4.0-11.0)
[2017-03-24 04:57] LABS: HEMO FLAGS AUTO DIFF
[2017-03-24 05:23] LABS: BANDS 23 % (0-6); METAMYELOCYTES 2 % (0-1); NEUTROPHIL # MANUAL DIFF 14.6 TH/MM3 (1.8-7.7); PLATELET ESTIMATE SMEAR NORMAL (NORMAL); PLATELET MORPHOLOGY NORMAL (NORMAL); POLYS (SEG NEUTROPHILS) 69 % (16-70); SCAN/DIFF FINAL DIFF MANUAL; WBC DIFF SAMPLE 100
[2017-03-24 05:28] LABS: ALKALINE PHOSPHATASE 82 U/L (45-117); ALT (GPT) 15 U/L (10-53); ANION GAP 10 MEQ/L (5-15); AST (GOT) 15 U/L (15-37); BICARBONATE 18.9 MEQ/L (21.0-32.0); BLOOD UREA NITROGEN 28 MG/DL (7-18); CHLORIDE 111 MEQ/L (98-107); GLOMERULAR FILTRATION RATE 35 ML/MIN (>89); POTASSIUM 3.4 MEQ/L (3.5-5.1); SODIUM (NA) 140 MEQ/L (136-145); TOTAL BILIRUBIN ADULT 0.7 MG/DL (0.2-1.0)
[2017-03-24] MEDS: buPROPion HCL 75 MG TAB PO SCH ×2 (08:14→22:31)
[2017-03-24] MEDS: DOCUSATE SODIUM 50 MG/SENNA 8.6 MG TAB PO SCH ×2 (08:14→22:31)
[2017-03-24] MEDS: TOPIRAMATE 100 MG TAB PO SCH ×2 (08:15→22:31)
[2017-03-24] MEDS: SODIUM CHLORIDE 0.9% FLUSH 10 ML FLUSH IV FLUSH SCH ×2 (08:17→21:00)
[2017-03-24] MEDS ORDERED: VILAZODONE 40 MG PO SCH (09:00)
[2017-03-24] MEDS: ACETAMINOPHEN/HYDROcodone 325 MG/5 MG TAB PO PRN ×2 (09:06→15:23)
[2017-03-24] MEDS: SODIUM CHLOR 0.9% 1000 ML INJ 1,000 ML IV SCH ×2 (10:37→22:33)
--- NOTE | 2017-03-24 11:22 | HHI.PR ---
Subjective Remarks Acute events overnight. Afebrile with a MAXIMUM TEMPERATURE of 100.5 this morning. She denies any subjective fever/chills. States she is feeling much better. Continues to endorse pelvic and low back pain. Objective Vitals Vital Signs Date Time Temp Pulse Resp B/P Pulse Ox O2 Delivery O2 Flow Rate FiO2 03/24/17 04:00 100.5 113 20 116/56 96 03/24/17 00:00 100.2 129 20 99/49 94 03/23/17 20:00 100.1 119 20 145/63 98 03/23/17 19:52 122 03/23/17 18:00 103 27 144/62 96 Nasal Cannula 2 03/23/17 17:45 99 24 171/76 93 Nasal Cannula 2 03/23/17 17:33 101.1 103 29 135/83 93 Nasal Cannula 4 03/23/17 15:45 98.5 104 18 131/60 94 Room Air 03/23/17 13:45 20 03/23/17 12:58 99.2 91 20 133/61 94 Room Air 03/23/17 12:03 98.7 115 18 143/85 95 I/O 03/23/17 03/23/17 03/23/17 03/24/17 03/24/17 03/24/17 07:00 15:00 23:00 07:00 15:00 23:00 Intake Total 1505 ml 1590 ml Output Total 135 ml 275 ml Balance 1370 ml 1315 ml Intake Oral 120 ml 240 ml IV Total 685 ml 1350 ml Other 700 ml Output Urine Total 125 ml 275 ml Estimated Blood Loss 10 ml Result Diagram: 03/24/17 0426 03/24/17 0426 Objective Remarks GENERAL: Well-developed well-nourished morbidly obese. In no acute distress. SKIN: Warm and dry. No lesions noted. HEENT: Normocephalic. Pupils equal and round. Mucous membranes pink and moist. CARDIOVASCULAR: Regular rate and rhythm. No murmur appreciated. RESPIRATORY: No accessory muscle use. Clear to auscultation. Breath sounds equal bilaterally. GASTROINTESTINAL: Abdomen soft, mild lower abdominal TTP, nondistended. Bowel sounds x4. No CVA tenderness. MUSCULOSKELETAL: No obvious deformities. No clubbing or cyanosis. No edema. NEUROLOGICAL: Awake and alert. No focal neurological deficits. Moves upper and lower extremities spontaneously. Normal speech. PSYCHIATRIC: Doesn't mood and affect; insight and judgment normal. A/P Assessment and Plan 66-year-old female with a past medical history of depression, DM, HLD, OA, hypothyroidism, and history of kidney stones in the past who presented for left flank pain //Pyelonephritis //Sepsis //Acute obstructive uropathy //Ureterolithiasis Abdominal CT shows acute obstructive uropathy of the left proximal ureter secondary to a 15 x 6 mm calculus; there is present throughout the pelvicalyceal system suggesting gas-forming organism. Continue leukocytosis. Lactic acid within normal limits. -Empiric antibiotic coverage with IV vancomycin and Zosyn. Culture pending. -Urology is been consulted, POD1 s/p Cystoscopy, left retrograde pyelogram, left ureteral stone manipulation and insertion left ureteral stent -IVF -Pain control with [place] and IV morphine as needed //DEVON Creatinine 1.49, no improvement from yesterday, no previous labs for comparison. Likely secondary to the above. -IVF and follow-up BMP //Diabetes mellitus. Chronic, stable. -Hold home oral hypoglycemics. Monitor Accu-Cheks. Cover with SSI. DVT prophylaxis: SCD Discharge Planning Pending urology recommendations Luana Palmer MD R3 Mar 24, 2017 11:22
[2017-03-24 12:00] VITALS: BP 110/57; PULSE 101; RESP 18; TEMP 98.6; O2SAT 95
[2017-03-24] MEDS ORDERED: POTASSIUM CHLORIDE 20 MEQ CONTROLLED RELEASE TAB PO ONE (12:00)
[2017-03-24 16:00] VITALS: BP 113/65; PULSE 103; RESP 18; TEMP 98.7; O2SAT 95
[2017-03-24 20:00] VITALS: BP 122/57; PULSE 100; RESP 20; TEMP 99.5; O2SAT 95
[2017-03-24 21:12] VITALS: PULSE 97
[2017-03-24] MEDS: ATORVASTATIN 10 MG TAB PO SCH (22:32)
[2017-03-25] VITALS: BP 115/57; PULSE 108; RESP 20; TEMP 99.8; O2SAT 97
[2017-03-25 04:00] VITALS: BP 124/63; PULSE 98; RESP 20; TEMP 99.4; O2SAT 96
[2017-03-25 05:03] LABS: BASOPHIL % 0.3 % (0.0-2.0); EOSINOPHIL % 0.4 % (0.0-4.0); HEMATOCRIT 26.7 % (35.0-46.0); HEMO FLAGS DIFF FINAL; LYMPH % 4.2 % (9.0-44.0); LYMPHOCYTE # 0.5 TH/MM3 (1.0-4.8); MEAN CELL VOLUME 92.1 FL (80.0-100.0); MEAN CORPUSCULAR HEMOGLOBIN 31.4 PG (27.0-34.0); MEAN CORPUSCULAR HGB CONC 34.1 % (32.0-36.0); MONO % 4.7 % (0.0-8.0); NEUT % 90.4 % (16.0-70.0); PLATELET COUNT 104 TH/MM3 (150-450); RED BLOOD COUNT 2.89 MIL/MM3 (4.00-5.30); RED CELL DISTRIBUTION WIDTH 14.4 % (11.6-17.2); WHITE BLOOD COUNT 11.1 TH/MM3 (4.0-11.0)
[2017-03-25 05:25] LABS: BICARBONATE 19.9 MEQ/L (21.0-32.0); POTASSIUM 3.6 MEQ/L (3.5-5.1)
[2017-03-25] MEDS: INSULIN ASPART SUPPLEMENTAL SCALE SQ SCH ×2 (05:27→11:00)
[2017-03-25] MEDS: PIPERACIL-TAZO 3.375 GM PREMIX 50 ML IV SCH (05:30)
[2017-03-25] MEDS: LEVOTHYROXINE SODIUM 75 MCG TAB PO SCH (05:30)
[2017-03-25] MEDS: SODIUM CHLOR 0.9% 1000 ML INJ 1,000 ML IV SCH (05:31)
[2017-03-25] MEDS: ACETAMINOPHEN/HYDROcodone 325 MG/5 MG TAB PO PRN (07:38)
[2017-03-25] MEDS: ONDANSETRON HCL 4 MG/2 ML VIAL IVP PRN (07:38)
[2017-03-25 08:00] VITALS: BP 122/57; PULSE 90; RESP 17; TEMP 96.9; O2SAT 97
[2017-03-25] MEDS: buPROPion HCL 75 MG TAB PO SCH (08:00)
[2017-03-25] MEDS: TOPIRAMATE 100 MG TAB PO SCH (08:00)
[2017-03-25] MEDS: DOCUSATE SODIUM 50 MG/SENNA 8.6 MG TAB PO SCH (08:00)
[2017-03-25] MEDS: SODIUM CHLORIDE 0.9% FLUSH 10 ML FLUSH IV FLUSH SCH (08:03)
[2017-03-25] MEDS ORDERED: VILAZODONE 40 MG PO SCH (09:00)
--- NOTE | 2017-03-25 11:46 | HHI.PR ---
Subjective Remarks Follow-up pyelonephritis 03/25/17-patient seen and examined, good urine output and afebrile. Objective Vitals Vital Signs Date Time Temp Pulse Resp B/P Pulse Ox O2 Delivery O2 Flow Rate FiO2 03/25/17 08:00 96.9 90 17 122/57 97 03/25/17 04:00 99.4 98 20 124/63 96 03/25/17 00:00 99.8 108 20 115/57 97 03/24/17 21:12 97 03/24/17 20:00 99.5 100 20 122/57 95 03/24/17 16:00 98.7 103 18 113/65 95 03/24/17 12:00 98.6 101 18 110/57 95 I/O 03/24/17 03/24/17 03/24/17 03/25/17 03/25/17 03/25/17 07:00 15:00 23:00 07:00 15:00 23:00 Intake Total 1590 ml 1689 ml 742 ml Output Total 275 ml 1200 ml 1025 ml 800 ml Balance 1315 ml -1200 ml 664 ml -58 ml Intake Oral 240 ml 240 ml 120 ml IV Total 1350 ml 1449 ml 622 ml Output Urine Total 275 ml 1200 ml 1025 ml 800 ml Result Diagram: 03/25/17 0428 03/25/17 0428 Imaging Last Impressions Abdomen/Pelvis CT 03/23/17 1232 Signed Impressions: Service Date/Time: Thursday, March 23, 2017 13:08 - CONCLUSION: 1. Acute obstructive uropathy of the left proximal ureter secondary to a 15 x 6 mm calcified calculus resulting in moderate pelvicaliectasis on the left. There is also air throughout the pelvicalyceal system suggesting gas-forming organism unless instrumentation has been attempted. Clinical correlation is recommended. Perinephric streakiness is noted on the left. 2. Uncomplicated colonic diverticulosis. 3. Hepatomegaly. 4. Scattered atelectasis within the visualized lung bases. 5. Cardiomegaly and tiny pericardial effusion. 6. Degenerative changes and scoliosis of the thoracolumbar spine are noted. Jerrod Shirley MD Objective Remarks GENERAL: NAD SKIN: Warm and dry. HEAD: Normocephalic. EYES: No scleral icterus. No injection or drainage. NECK: Supple, trachea midline. No JVD or lymphadenopathy. CARDIOVASCULAR: Regular rate and rhythm without murmurs, gallops, or rubs. RESPIRATORY: Breath sounds equal bilaterally. No accessory muscle use. GASTROINTESTINAL: Abdomen soft, non-tender, nondistended. MUSCULOSKELETAL: No cyanosis, or edema. BACK: Nontender without obvious deformity. No CVA tenderness. A/P Problem List: (1) Sepsis ICD Code: A41.9 Status: Acute (2) Pyelonephritis due to Escherichia coli ICD Code: N12 Status: Acute (3) UTI (urinary tract infection) ICD Code: N39.0 Status: Acute (4) Urinary tract obstruction due to kidney stone ICD Code: N20.0 Status: Acute (5) Ureteric calculus ICD Code: N20.1 Status: Acute Assessment and Plan 66-year-old female with Pyelonephritis-Escherichia coli Sepsis Acute obstructive uropathy Ureterolithiasis Abdominal CT shows acute obstructive uropathy of the left proximal ureter secondary to a 15 x 6 mm calculus; there is present throughout the pelvicalyceal system suggesting gas-forming organism. -Empiric antibiotic coverage with IV vancomycin and Zosyn. Urine culture positive for Escherichia coli -Urology is been consulted, POD2 s/p Cystoscopy, left retrograde pyelogram, left ureteral stone manipulation and insertion left ureteral stent -IVF -Pain control with [place] and IV morphine as needed Acute renal failure Improving and continue IV fluid hydration Diabetes mellitus. Chronic, stable. -Hold home oral hypoglycemics. Monitor Accu-Cheks. Cover with SSI. DVT prophylaxis: Mateus Jackman MD Mar 25, 2017 11:46
--- NOTE | 2017-03-25 11:49 | HHI.DS ---
Discharge Summary Admission Date Mar 23, 2017 at 14:37 Discharge Date: Mar 25, 2017 Admitting Diagnosis L Ureter Stone w Obstruction (1) Sepsis ICD Code: A41.9 (2) Pyelonephritis due to Escherichia coli ICD Code: N12 (3) UTI (urinary tract infection) ICD Code: N39.0 (4) Urinary tract obstruction due to kidney stone ICD Code: N20.0 (5) Ureteric calculus ICD Code: N20.1 Procedures s/p Cystoscopy, left retrograde pyelogram, left ureteral stone manipulation and insertion left ureteral stent Brief History - From Admission Written by Gus Chaudhary, acting as scribe for Dr. Musa on 03/23/17 at 15:29. 66-year-old female with a past medical history of depression, DM, HLD, OA, hypothyroidism, and history of kidney stones in the past who presented for left flank pain. The patient states that yesterday afternoon she was swelling and developed dull back pain. The pain has been constant since that time. She locates the pain in her left back and it radiates to her lower abdomen. She did have chills last night. She's been reporting decreased appetite for the past day. She's been generally uncomfortable secondary to the pain overnight. She denies any nausea, vomiting, chest pain, shortness breath, dysuria, headache , constipation, cough, cold symptoms. She did have a history of a small kidney stone back in 2011 which he passed spontaneously. She did have a recent intentional 50 pound weight loss. She was seen by urology who is planning on operative intervention today. CBC/BMP: 03/25/17 0428 03/25/17 0428 Significant Findings Laboratory Tests Test 03/23/17 03/23/17 03/24/17 03/25/17 12:30 15:55 04:26 04:28 White Blood Count 15.6 TH/MM3 15.5 TH/MM3 11.1 TH/MM3 (4.0-11.0) (4.0-11.0) (4.0-11.0) Red Blood Count 3.88 MIL/MM3 3.08 MIL/MM3 2.89 MIL/MM3 (4.00-5.30) (4.00-5.30) (4.00-5.30) Neutrophils (%) (Auto) 93.0 % 93.0 % 90.4 % (16.0-70.0) (16.0-70.0) (16.0-70.0) Lymphocytes (%) (Auto) 2.8 % 2.4 % 4.2 % (9.0-44.0) (9.0-44.0) (9.0-44.0) Neutrophils # (Auto) 14.5 TH/MM3 14.4 TH/MM3 10.0 TH/MM3 (1.8-7.7) (1.8-7.7) (1.8-7.7) Lymphocytes # (Auto) 0.4 TH/MM3 0.4 TH/MM3 0.5 TH/MM3 (1.0-4.8) (1.0-4.8) (1.0-4.8) Chloride Level 109 MEQ/L 111 MEQ/L 111 MEQ/L (98-107) (98-107) (98-107) Blood Urea Nitrogen 24 MG/DL (7-18) 28 MG/DL (7-18) 24 MG/DL (7-18) Creatinine 1.47 MG/DL 1.49 MG/DL 1.25 MG/DL (0.50-1.00) (0.50-1.00) (0.50-1.00) Estimat Glomerular Filtration 36 ML/MIN (>89) 35 ML/MIN (>89) 43 ML/MIN (>89) Rate Lipase 43 U/L (73-393) Urine Turbidity HAZY (CLEAR) Urine Protein 30 mg/dL (NEG-TRACE) Urine Occult Blood SMALL (NEG) Urine Leukocyte Esterase LARGE (NEG) Urine WBC 40 /hpf (0-5) Urine WBC Clumps RARE (NONE) Urine Bacteria OCC /hpf (NONE) Urine Mucus FEW /lpf (OCC) Hemoglobin 9.6 GM/DL 9.1 GM/DL (11.6-15.3) (11.6-15.3) Hematocrit 28.5 % 26.7 % (35.0-46.0) (35.0-46.0) Platelet Count 109 TH/MM3 104 TH/MM3 (150-450) (150-450) Band Neutrophils % 23 % (0-6) Lymphocytes % 2 % (9-44) Neutrophils # (Manual) 14.6 TH/MM3 (1.8-7.7) Metamyelocytes 2 % (0-1) Potassium Level 3.4 MEQ/L (3.5-5.1) Carbon Dioxide Level 18.9 MEQ/L 19.9 MEQ/L (21.0-32.0) (21.0-32.0) Random Glucose 114 MG/DL 112 MG/DL (74-106) (74-106) Calcium Level 8.2 MG/DL 8.2 MG/DL (8.5-10.1) (8.5-10.1) Total Protein 5.8 GM/DL (6.4-8.2) Albumin 2.6 GM/DL (3.4-5.0) Imaging Last Impressions Abdomen/Pelvis CT 03/23/17 1232 Signed Impressions: Service Date/Time: Thursday, March 23, 2017 13:08 - CONCLUSION: 1. Acute obstructive uropathy of the left proximal ureter secondary to a 15 x 6 mm calcified calculus resulting in moderate pelvicaliectasis on the left. There is also air throughout the pelvicalyceal system suggesting gas-forming organism unless instrumentation has been attempted. Clinical correlation is recommended. Perinephric streakiness is noted on the left. 2. Uncomplicated colonic diverticulosis. 3. Hepatomegaly. 4. Scattered atelectasis within the visualized lung bases. 5. Cardiomegaly and tiny pericardial effusion. 6. Degenerative changes and scoliosis of the thoracolumbar spine are noted. Jerrod Shirley MD PE at Discharge GENERAL: NAD SKIN: Warm and dry. HEAD: Normocephalic. EYES: No scleral icterus. No injection or drainage. NECK: Supple, trachea midline. No JVD or lymphadenopathy. CARDIOVASCULAR: Regular rate and rhythm without murmurs, gallops, or rubs. RESPIRATORY: Breath sounds equal bilaterally. No accessory muscle use. GASTROINTESTINAL: Abdomen soft, non-tender, nondistended. MUSCULOSKELETAL: No cyanosis, or edema. BACK: Nontender without obvious deformity. No CVA tenderness. Hospital Course Patient admitted secondary to sepsis due to pyelonephritis for which she was started on IV antibiotics with monitor of blood and urine culture. She was also found to have acute obstructive uropathy and Urolithiasis for which urology was consulted and patient underwent Cystoscopy, left retrograde pyelogram, left ureteral stone manipulation and insertion left ureteral stent. Renal function improved with IV fluid hydration. She was started on sliding scale insulin with monitoring of fingerstick blood glucose. Prior to discharge , patient's condition improved and she will be discharged home on by mouth antibiotic. Pt Condition on Discharge: Stable Discharge Disposition: Discharge Home Discharge Time: <= 30 minutes Discharge Instructions DIET: Follow Instructions for: Diabetic Diet Activities you can perform: Regular-No Restrictions Follow up Referrals: PCP Follow-up - 1 Week Urology - 2 Weeks New Medications: Ciprofloxacin (Cipro) 500 Mg Tab 500 MG PO BID Infection #20 Ref 0 TAB Lactobacillus Acidophilus (Lactinex) 1 Chew 1 TAB CHEW BID Nutritional Supplement #20 Ref 0 TAB Continued Medications: Atorvastatin (Atorvastatin) 10 Mg Tab 10 MG PO HS Cholesterol Management #30 Ref 0 TAB Bupropion HCl ER 24 HR (Wellbutrin Xl 24 HR) 300 Mg Tab 300 MG PO DAILY Control Depression Ref 0 TAB Cholecalciferol (Vitamin D-1000) 1,000 Unit Tab 74527 UNITS PO WEEKLY Nutritional Supplement #1 Ref 0 BOTTLE Cyanocobalamin Inj (Cyanocobalamin Inj) 1,000 Mcg/Ml Inj 1000 MCG IM Q30D #1 Ref 0 VIAL Fluticasone Nasal [place] (Fluticasone Nasal [place]) 50 Mcg/Act Naspr 50 MCG EACH NARE BID 50 mcg/spray Allergy Management #1 Ref 0 BOTTLE Levothyroxine (Levothyroxine) 75 Mcg Tab 75 MCG PO DAILY Thyroid #30 Ref 0 TAB Pioglitazone (Actos) 30 Mg Tab 30 MG PO DAILY Blood Sugar Management #30 Ref 0 TAB Pioglitazone (Actos) 30 Mg Tab 30 MG PO DAILY Blood Sugar Management #30 Ref 0 TAB Temazepam (Temazepam) 30 Mg Cap 30 MG PO HS PRN INSOMNIA #30 Ref 0 CAP Topiramate (Topamax) 100 Mg Tab 100 MG PO BID Control Seizures #60 Ref 0 TAB Vilazodone (Viibryd) 40 Mg Tab 40 MG PO DAILY Control Depression #30 Ref 0 TAB Maetus Gillis MD Mar 25, 2017 11:49
[2017-03-25] MEDS ORDERED: LACTCHW3 CHEW (11:54)
[2017-03-25] MEDS ORDERED: CIPR-9 PO (11:54)
[2017-03-25 12:00] VITALS: BP 115/59; PULSE 85; RESP 18; TEMP 97.7; O2SAT 97
--- NOTE | 2017-03-25 12:41 | HHI.PR ---
Subjective Patient symptoms today Postoperative day #2 left ureteral stent placement Reports feeling much improved Denies significant pain Objective Vital Signs Vital Signs Date Time Temp Pulse Resp B/P Pulse Ox O2 Delivery O2 Flow Rate FiO2 03/25/17 08:00 96.9 90 17 122/57 97 03/25/17 04:00 99.4 98 20 124/63 96 03/25/17 00:00 99.8 108 20 115/57 97 03/24/17 21:12 97 03/24/17 20:00 99.5 100 20 122/57 95 03/24/17 16:00 98.7 103 18 113/65 95 Intake & Output 03/25/17 03/25/17 07:00 19:00 Intake Total 2431 ml Output Total 1825 ml Balance 606 ml Intake Oral 360 ml IV Total 2071 ml Output Urine Total 1825 ml Result Diagram: 03/25/1742703/25/17427 Objective Remarks Abdomen soft, nondistended, nontender Ham in place draining clear yellow urine Medications and IVs Current Medications Medications (Trade) Dose Ordered Sig/Judith Route Start Time Stop Time Status Last Admin (NS 1000 ml Inj) 1,000 ml @ 100 mls/hr Q10H IV 03/23/17 14:37 03/25/17 05:31 (NS Flush) 2 ml UNSCH PRN IV FLUSH 03/23/17 14:45 (NS Flush) 2 ml BID IV FLUSH 03/23/17 21:00 03/23/17 22:28 (Zofran Inj) 4 mg Q6H PRN IVP 03/23/17 14:45 03/25/17 07:38 (Narcan Inj) 0.4 mg UNSCH PRN IV 03/23/17 14:45 (Olivia-Colace) 1 tab BID PO 03/23/17 21:00 03/25/17 08:00 (Milk Of Magnesia Liq) 30 ml Q12H PRN PO 03/23/17 14:45 (Senokot) 17.2 mg Q12H PRN PO 03/23/17 14:45 (Dulcolax Supp) 10 mg DAILY PRN RECTAL 03/23/17 14:45 Lactulose 30 ml 30 ml DAILY PRN PO 03/23/17 14:45 (Zosyn 3.375 Gm Premix) 50 ml @ 100 mls/hr Q8H IV 03/23/17 23:00 03/25/17 05:30 (D50w (Vial) Inj) 50 ml UNSCH PRN IV 03/23/17 15:15 (Glucagon Inj) 1 mg UNSCH PRN OTHER 03/23/17 15:15 (Boyle 5-325 Mg) 1 tab Q4H PRN PO 03/23/17 15:45 03/25/17 07:38 (Morphine Inj) 4 mg Q3H PRN IV PUSH 03/23/17 15:45 03/24/17 19:45 (Lipitor) 10 mg HS PO 03/23/17 21:00 03/24/17 22:32 (Wellbutrin) 150 mg BID PO 03/23/17 21:00 03/25/17 08:00 (Synthroid) 75 mcg DAILY@06 PO 03/24/17 06:00 03/25/17 05:30 (Restoril) 30 mg HS PRN PO 03/23/17 16:00 (Topamax) 100 mg BID PO 03/23/17 21:00 03/25/17 08:00 (Tylenol) 650 mg Q6HR PRN PO 03/23/17 23:30 03/24/17 04:28 Patient Own Medication PT OWN MED:(Vilazodone (Viibryd)... DAILY PO 03/25/17 09:00 03/25/17 08:02 Assessment and Plan Assessment and Plan Urologic impression: #1 left sided emphysematous pyelonephritis #2 obstructing left proximal ureteral calculus #3 status post left ureteral stent placement with excellent clinical response Plan: #1 discontinue Ham catheter #2 urologically cleared to discharge home on oral antibiotics #3 patient to follow up with me within the next 2 weeks for reevaluation and to arrange outpatient shockwave lithotripsy [phone] Keanu Castillo MD Mar 25, 2017 12:41
== END 2017-03-25 15:15 | disposition home or self-care (01) | DRG 872 ==
LOC: HOR 12:01 → NEDA 14:37 → N07B 18:33
PROVIDERS: ADMIT Hospitalist; ATTEND Hospitalist
PROC: BT1F1ZZ Fluoroscopy of Left Kidney, Ureter and Bladder using Low Osmolar Contrast (ICD-10-PCS; 2017-03-23)
PROC: 0T778DZ Dilation of Left Ureter with Intraluminal Device, Via Natural or Artificial Opening Endoscopic (ICD-10-PCS; principal; 2017-03-23 16:20)
DX: A41.9 Sepsis, unspecified organism (principal); N17.9 Acute kidney failure, unspecified; N13.6 Pyonephrosis; M41.9 Scoliosis, unspecified; R16.0 Hepatomegaly, not elsewhere classified; N20.2 Calculus of kidney with calculus of ureter; B96.20 Unspecified Escherichia coli [E. coli] as the cause of diseases classified elsewhere; E11.9 Type 2 diabetes mellitus without complications; J98.11 Atelectasis; E03.9 Hypothyroidism, unspecified; E78.5 Hyperlipidemia, unspecified; K57.90 Diverticulosis of intestine, part unspecified, without perforation or abscess without bleeding; Z90.710 Acquired absence of both cervix and uterus; Z87.442 Personal history of urinary calculi; I51.7 Cardiomegaly; M19.90 Unspecified osteoarthritis, unspecified site; F32.9 Major depressive disorder, single episode, unspecified
CPT/HCPCS: 74176; 74420; 76937; 80048; 80053; 81001; 82948; 83605; 83690; 85007; 85025; 85027; 87077; 87086; 87186; 87205; 96361; 96374; 96375; C1769; J1170; J1580; J2175; J2270; J2405; J2543; J3010; J7030; J7040; Q9967

== ENCOUNTER → 2017-04-24 | Day surgery (SDC) | payer MEDICARE, OTHER ==
[~2017-04-24] VITALS: Ht 160 cm; Wt 119.7 kg
[~2017-04-24] MED LIST changes: +ACTO30TA10 PO; +ATOR10TA15 PO; +CEPH-459 PO; +CHLORHEXIDINE GLUCONATE 2 % 1 PACK (2 CLOTHS) TOPICAL PRN; +COLA100C PO; +CYAN1000P IM; +FAMOTIDINE 20 MG/2 ML VIAL ONE; +FLUT50SP EACH NARE; +HYDR-3583 PO; +INSULIN HUMAN REGULAR 1,000 UNITS/10 ML VIAL SQ PRN; -IOHEXOL 300 MG/ML 50 ML BTL (for RAD DIAG) ONE; +LACTATED RINGER'S 1000 ML IV PRN; +LACTCHW3 CHEW; +LEVO75TA3 PO; +METOPROLOL TARTRATE 25 MG TAB PO PRN; +MIDAZOLAM HCL 2 MG/2 ML VIAL ONE; +PERC5TAB12 PO; +POVIDONE IODINE 5% (ANTISEPSIS KIT) 4 APPLICATIONS EACH NARE PRN; +SODIUM CHLORID 0.9% 500 ML IV PRN; +TAMS0.4C4 PO; +TEMA30CA PO; +TOPA100T11 PO; +VIIB40TA PO; +VITA1000 PO; +WELLTAB39 PO
[2017-04-24] MEDS: ceFAZolin 1,000 MG/NS 100 ML IV SCH ×4 (09:50→09:58)
--- NOTE | 2017-04-24 09:52 | RADRPT ---
EXAM DATE/TIME: 04/24/2017 09:24 [facility] COMPARISON: CT ABDOMEN & PELVIS W/O CONTRAST, March 23, 2017, 13:08. INDICATIONS : Pre op for lithotripsy. MEDICAL HISTORY : Diabetes mellitus type 2. Hypothyroidism. Renal calculi. SURGICAL HISTORY : Hysterectomy. ENCOUNTER: Initial ACUITY: 1 day PAIN SCORE: 0/10 LOCATION: Bilateral Abdomen. FINDINGS: A double-J left ureteral stent is present in good position. There is a roughly 12 mm oblong calcific density adjacent to the proximal stent, presumably at the ureteropelvic junction. There are couple of phleboliths overlying the pelvis. No suspicious right flank calcifications. Intestinal gas pattern i s nonspecific and benign. Mild scoliosis and degenerative change of the spine and hips. CONCLUSION: Proximal left ureteral calculus. Double-J left ureteral stent in good position Regan Martell MD on April 24, 2017 at 9:48 Board Certified Radiologist. This report was verified electronically.
[2017-04-24 09:57] LABS: BASOPHIL % 0.6 % (0.0-2.0); EOSINOPHIL # 0.1 TH/MM3 (0-0.4); EOSINOPHIL % 1.3 % (0.0-4.0); HEMATOCRIT 33.7 % (35.0-46.0); HEMO FLAGS DIFF FINAL; LYMPH % 12.7 % (9.0-44.0); LYMPHOCYTE # 0.8 TH/MM3 (1.0-4.8); MEAN CELL VOLUME 93.1 FL (80.0-100.0); MEAN CORPUSCULAR HEMOGLOBIN 30.7 PG (27.0-34.0); MEAN CORPUSCULAR HGB CONC 32.9 % (32.0-36.0); NEUT % 78.4 % (16.0-70.0); PLATELET COUNT 192 TH/MM3 (150-450); RED BLOOD COUNT 3.62 MIL/MM3 (4.00-5.30); RED CELL DISTRIBUTION WIDTH 15.4 % (11.6-17.2); WHITE BLOOD COUNT 6.4 TH/MM3 (4.0-11.0)
--- NOTE | 2017-04-24 11:10 | PD.OP ---
Operative Report Date of Surgery: Apr 24, 2017 Preoperative Diagnosis: Left ureteral calculi Postoperative Diagnosis: Same Procedure: Left extracorporeal shockwave lithotripsy Anesthesia: TIVA Surgeon: Romaine Barahona Fruit And Vegetable Packer(s): None Resident Surgeon: None Operation and Findings: 66-year-old female with a 7 mm left ureteral stone status post cystoscopy left double-J stent placement by Dr. Malcolm. Patient was scheduled undergo left extraportal shockwave lithotripsy. Risk and benefits were discussed preoperative she is willing to proceed. The patient was brought to the operating room and identified by myself as Janette Allen. She is placed on the operating table in the supine position. She received preprocedure antibiotics and TIVA anesthesia was administered. Under fluoroscopic imaging guidance the stone was visualized along the stent at the area of the UPJ. ESWL therapy commenced with the patient receiving a total of 3000 shocks. Fragmentation the stone was visualized on fluoroscopic and ultrasound imaging. She tolerated the procedure well. She is awoken and transferred Mark stable condition. She will follow-up in the office in 2 weeks and obtain a KUB x-ray prior to her visit. Romaine Barahona DO Apr 24, 2017 11:09
[2017-04-24 12:10] VITALS: BP 141/69; PULSE 65; RESP 20; TEMP 97.9; O2SAT 99
--- NOTE | 2017-04-24 16:40 | EKG ---
Date Performed: 04/24/2017 Time Performed: 09:32:35 PTAGE: 66 years EKG: Sinus rhythm NORMAL ECG NO PREVIOUS TRACING DOCTOR: Jillian John Interpretating Date/Time 04/24/2017 16:38:07
== END | disposition home or self-care (01) ==
LOC: HSDC 08:47
PROVIDERS: ATTEND Urology
DX: N20.1 Calculus of ureter (principal); E11.9 Type 2 diabetes mellitus without complications; Z01.810 Encounter for preprocedural cardiovascular examination; Z01.818 Encounter for other preprocedural examination
CPT/HCPCS: 00872; 50590; 74000; 85025; 93005; J0690; J2250; J2405; J3010; J7120

== ENCOUNTER → 2017-06-04 | Day surgery (SDC) | payer MEDICARE, OTHER ==
[~2017-06-04] VITALS: Ht 160 cm; Wt 119.8 kg
[~2017-06-04] MED LIST changes: +ACETAMINOPHEN 1000 MG/100 ML 100 ML IV ONE; +DO NOT ADM ANY ANTICOAGULANT DRUGS PRN; -FAMOTIDINE 20 MG/2 ML VIAL ONE; +FUROSEMIDE 40 MG/4 ML VIAL ONE; +GENTAMICIN SULFATE 80 MG/2 ML VIAL ONE; +MEPERIDINE HCL 25 MG/ML VIAL ONE; -MIDAZOLAM HCL 2 MG/2 ML VIAL ONE; -ONDANSETRON HCL 4 MG/2 ML VIAL IV PUSH ONE; +ONDANSETRON HCL 4 MG/2 ML VIAL IV PUSH PRN; +PROMETHAZINE INJ 25 MG/ML VIAL ONE; -PROPOFOL 200 MG/20 ML AMP IV ONE; +SODIUM CHLORIDE SCH; +ceFAZolin 2 GM PREMIX 50 ML IV SCH; +oxyCODONE/ACETAMINOPHEN 5 MG/325 MG TAB PO PRN
[2017-06-04 09:49] LABS: AUTOMATED NEUTROPHIL # 4.1 TH/MM3 (1.8-7.7); BASOPHIL % 0.5 % (0.0-2.0); EOSINOPHIL # 0.1 TH/MM3 (0-0.4); EOSINOPHIL % 1.7 % (0.0-4.0); HEMATOCRIT 35.2 % (35.0-46.0); HEMO FLAGS DIFF FINAL; LYMPH % 18.4 % (9.0-44.0); MEAN CORPUSCULAR HGB CONC 32.6 % (32.0-36.0); MONO % 7.2 % (0.0-8.0); NEUT % 72.2 % (16.0-70.0); PLATELET COUNT 174 TH/MM3 (150-450); RED BLOOD COUNT 3.83 MIL/MM3 (4.00-5.30); RED CELL DISTRIBUTION WIDTH 15.7 % (11.6-17.2); WHITE BLOOD COUNT 5.7 TH/MM3 (4.0-11.0)
--- NOTE | 2017-06-04 12:59 | PD.OP ---
Operative Report Date of Surgery: Jun 04, 2017 Preoperative Diagnosis: (1) Ureteral calculus, left Postoperative Diagnosis: (1) Ureteral calculus, left Procedure: Cystoscopy, left retrograde pyelogram, left ureteroscopy with laser lithotripsy and left ureteral stent exchange Anesthesia: General Surgeon: Keanu Castillo Diesel Engine Erector(s): None Operation and Findings: Indication for procedure: Case of a pleasant 67-year-old female with a greater than 1 cm left proximal ureteral calculus refractory to shockwave lithotripsy. Patient presents now to undergo left ureteroscopy with laser lithotripsy. Operative procedure in detail: Patient was brought to the operating room suite and placed supine on the OR table. She was then placed under general anesthesia. She was then repositioned in the dorsolithotomy position and prepped and draped in normal sterile fashion. After appropriate timeout was undertaken I proceeded with cystoscopic evaluation utilizing the rigid cystoscope with a 20 [place] sheath and the 30 lens. Both right and left ureteral orifices were in correct anatomic position. There was clear reflux of urine noted on the right and no reflux on the left. I then advanced a sensor 0.35 wire up the patient's left ureter around the proximal ureteral stone and further advanced it within the left renal pelvis. This wire was passed alongside the previously inserted left ureteral stent. Once the wire was in place, I then endoscopically remove the left ureteral stent using the flexible forceps. Once the stent was removed was carefully inspected to make certain no stent fragments were left behind. I next advanced a double lumen catheter over the wire to facilitate passage of a second sensor wire. With both wires in place, I advanced the flexible ureteroscope over one of the wires up to the point of the obstructing stone. I was then able to remove the wire through the lumen of the ureteroscope and exchange this for a 2.4 [place] stone basket. I attempted to place a basket over the stone however the stone itself was too large. The basket was then exchanged for a 200 holmium laser fiber and the stone broken up into smaller pieces with the holmium laser. Once the stone was somewhat smaller I reintroduced the basket this time was able to secure it and advance it down the ureter several centimeters in a caudad direction. The basket was left in place and the ureteroscope was withdrawn and reintroduced alongside the basket. With the stone captured and was able to further break it down to multiple small pieces with the holmium laser. Once the stone was broken up several of the watch fragments were grasped under direct vision with the basket and sent off for chemical composition analysis. The cystoscope was extracted loaded with the remaining sensor wire and a 6 [place] open-end ureteral catheter was advanced over this wire and the wire withdrawn. A left retrograde program study was next performed to outline the collecting system. The wire was reinserted via the open-ended catheter and the catheter exchanged for a 6 [place] 24 cm [place] stent. The stent was placed under both cystoscopic and fluoroscopic guidance. Once the stent was in proper position the trailing string was removed. A 16 [place] 10 cc Ham catheter was then placed and connected to gravity drainage. The patient tolerated the procedures without complications and was transferred to the PACU in satisfactory condition. Keanu Castillo MD Jun 04, 2017 12:59
[2017-06-04 15:18] VITALS: BP 165/70; PULSE 96; RESP 18; TEMP 98; O2SAT 96
== END | disposition home or self-care (01) ==
LOC: HSDC 07:17
PROVIDERS: ATTEND Urology
DX: N20.1 Calculus of ureter (principal); E11.9 Type 2 diabetes mellitus without complications; J30.9 Allergic rhinitis, unspecified; M19.90 Unspecified osteoarthritis, unspecified site
CPT/HCPCS: 74420; 82365; 82370; 85025; 88300; C1726; C1769; J0131; J0690; J1580; J1940; J2175; J2550; J7030; J7120